=== PATIENT | male | born 1990 | race Caucasian/White ===

== ENCOUNTER 2021-04-25 16:34 | Emergency (ER) | payer BC, SELFPAY ==
--- NOTE | 2021-04-25 16:38 | ED.GENADULT ---
HPI - General Adult General Chief complaint: Syncope Stated complaint: ambulance Time Seen by Provider: 04/25/21 16:38 Source: patient Mode of arrival: ambulatory Limitations: no limitations History of Present Illness HPI narrative: Tyrese is a 30M with a PMH of pseudoseizures, vertigo, and an ear infection that presented to the ED via EMS after an episode of syncope. He has had a a left sided ear infection and pain for a few days as well as a left sided pounding headache, and vertigo for a few days. Today [place] has been at a [employer]. When he left he got out of his car, took a few steps, became lightheaded and passed out. He states he only drank a little bit of water and a little bit of soda today. No CP, SOB, nausea, vomiting or palpitations reported. Related Data Home Medications Medication Instructions Recorded Confirmed alprazolam 1 mg PO DAILY PRN 04/25/21 04/25/21 Allergies Allergy/AdvReac Type Severity Reaction Status Date / Time No Known Allergies Allergy Verified 04/25/21 17:23 Review of Systems Constitutional: Constitutional: Reports no additional constitutional complaints Eyes: Eyes: Reports no additional eye complaints ENT: Reports system reviewed and no additional complaints, except as documented Cardiovascular: Cardiovascular: Reports as per HPI Respiratory: Respiratory: Reports as per HPI Gastrointestinal: Gastrointestinal: Reports no additional gastrointestinal complaints Genitourinary: Genitourinary: Reports no additional male genitourinary complaints Musculoskeletal: Musculoskeletal: Reports no additional musculoskeletal complaints Integumentary/Breasts: Skin/Breast: Reports system reviewed and no additional complaints, except as docu Neurologic: Reports system reviewed and no additional complaints, except as documented Psychiatric: Psychiatric: Reports no additional psychiatric complaints Endocrine: Endocrine: Reports no additional endocrine complaints Hematologic/Lymphatic: Hematologic/Lymphatic: Reports no additional hematologic/lymphatic complaints Allergic/Immunologic: Allergic/Immunologic: Reports no additional allergic/immunologic complaints [facility] Social History Social History Gender identity (if verbalized by the patient): Male Exam Const: General: no acute distress and alert Orientation/consciousness: patient oriented x3 Limitations: No altered mental status HENMT: Head: normal to inspection Other: atrauamtic, dry mucous membranes Eyes: Conjunctivae: conjunctivae normal Pupils: Equal, round and reactive pupils present Neck: Neck: normal visual inspection Chest: Chest palpation & inspection: normal inspection of the chest Resp: Effort & Inspection: normal respiratory effort, not labored, no retractions and not tachypneic Cardio: Rate: regular rate Rhythm: regular rhythm Heart sounds: no murmurs GI: Inspection: non-distended GI Palp: Yes Soft to palpation, No Tenderness to palpation present (GI) and No Guarding due to palpation present (GI) Back/Spine/Pelvis: Back: no CVA tenderness Skin: General skin exam: normal color Rashes: no rashes Neuro: General: patient oriented x3, moves all extremities and no focal motor deficits Extrem: General: normal to inspection Psych: Appearance: grossly normal Mental Status: mental status grossly normal Thought content: Yes Normal thought content present Course Course Emergency Course: Labs were largely unremarkable but his pulse went up 28bpm from laying to standing so I suspect orthostatic hypotension. A liter of fluids was ordered. He felt fine after the fluids. Labs were unremarkable. Ekg showed sinus tachycardia with a rate of 99, normal axis, No ST elevation/depression, and no ectopy Orthostatic hypotension vs vasovagal syncope vs pseudoseizure. As Holstein syncope score was zero serious etiology is unlikely. Vital Signs Vital signs: Vital Signs
--- NOTE | 2021-04-25 16:42 | ECG_ITS ---
Measurements Intervals [place] Rate: 99 P: 12 KS: 149 QRS: 81 QRSD: 88 T: 56 QT: 327 QTc: 421 Interpretive Statements SINUS RHYTHM NORMAL ECG Electronically Signed On 04-26-2021 6:06:52 CDT by Diogenes Armendariz D.O.
[2021-04-25 16:56] LABS: Basophils Absolute Auto 0.08 K/mm3 (0.00-0.10); Basophils Percent Auto 0.7 % (0.0-1.0); Eosinophils Absolute Auto 0.36 K/mm3 (0.02-0.50); Eosinophils Percent Auto 3.3 % (1.0-6.0); Hematocrit 43.6 % (40.0-54.0); Hemoglobin 14.7 g/dL (14.0-18.0); Immature Granulocyte Absolute 0.04 K/mm3 (0.00-0.00); Immature Granulocyte Percent A 0.4 % (0.0-0.0); Lymphocytes Absolute Auto 2.52 K/mm3 (1.10-4.50); Lymphocytes Percent Auto 23.4 % (18.0-42.0); Mean Corpuscular HGB Conc 33.7 g/dL (32.0-36.0); Mean Corpuscular Hemoglobin 29.5 pg (27.0-31.0); Mean Corpuscular Volume 87.4 fL (78.0-102.0); Mean Platelet Volume 10.3 fl (8.7-11.0); Monocytes Absolute Auto 0.68 K/mm3 (0.10-0.90); Monocytes Percent Auto 6.3 % (2.0-11.0); Neutrophils Absolute Auto 7.1 K/mm3 (1.7-7.2); Neutrophils Percent Auto 65.9 % (50.0-70.0); Platelet Count Result 299 K/mm3 (150-420); Red Blood Count 4.99 M/mm3 (4.70-6.10); Red Cell Distribution Width 12.8 % (11.6-14.4); White Blood Count 10.8 K/mm3 (4.8-10.8)
[2021-04-25 17:00] VITALS: BP 130/82; PULSE 99; RESP 20; TEMP 37.1; O2SAT 97
[2021-04-25 17:19] LABS: Alanine Aminotransferase 35 U/L (16-63); Albumin Level 3.4 g/dL (3.4-5.0); Alkaline Phosphatase 83 U/L (46-116); Anion Gap 9 mmol/L (8-16); Aspartate Amino Transferase 31 U/L (15-37); Bilirubin,Total 0.2 mg/dL (0.00-1.00); Blood Urea Nitrogen 13 mg/dL (7-18); Calcium 8.6 mg/dL (8.5-10.1); Carbon Dioxide 28 mmol/L (21-32); Chloride 104 mmol/L (98-108); Estimated CRCL calculation 136 ml/min; Estimated Glomerular Filt Rate > 60; Glucose 135 mg/dL (70-99); NT Pro B Type Natriuretic Pept 12 pg/mL (0-125); Osmolality Calculated 294 mOsm/kg (285-295); Potassium 3.6 mmol/L (3.5-5.1); Sodium 141 mmol/L (136-145); Total Protein 7.1 g/dL (6.4-8.2); Troponin I 4.7 ng/L (0.00-60.4)
[2021-04-25 17:20] LABS: Ethanol < 3 mg/dL (0-6)
[2021-04-25] MEDS: SODIUM CHLORIDE 0.9% IV 1,000 ML 999 ML IV CONT (17:28)
[2021-04-25 18:39] VITALS: BP 136/84; PULSE 88; RESP 20; TEMP 36.9; O2SAT 97
== END 2021-04-25 18:41 | disposition home or self-care (01) ==
PROVIDERS: Emergency Provider Family Medicine
DX: I95.1 Orthostatic hypotension (principal)
CPT/HCPCS: 36415; 80053; 80307; 83880; 84484; 85025; 93005; 96360; 99283; 99284; J7030